=== PATIENT | male | born 1995 | race Hispanic/Latino ===

== ENCOUNTER 2020-12-05 02:01 | Inpatient (IN) | payer SELFPAY ==
[2020-12-04] MEDS: NYSTATIN 15 GM POWDER TP SCH (22:51)
[2020-12-05] VITALS (7 sets, daily range): BP systolic 112–136; BP diastolic 62–77
[~2020-12-05] VITALS: Ht 160 cm; Wt 76.3 kg
[2020-12-05] MEDS ORDERED: VANCOMYCIN 1G VIAL IVPB ONE (04:00)
[2020-12-05] MEDS ORDERED: 0.9% NACL 250ML IVPB ONE (04:00)
[2020-12-05] MEDS ORDERED: SULFAMETHOX-TMP DS 800/160 TAB PO SCH (04:00)
[2020-12-05 04:07] LABS: BASOPHILS % (AUTO) 0.3 % (0.0-5.0); EOSINOPHILS % (AUTO) 0.5 % (0.0-8.0); LYMPHOCYTES % (AUTO) 16.2 % (21.0-51.0); MEAN CORPUSCULAR HEMOGLOBIN 28.7 pg (27.0-33.0); MEAN CORPUSCULAR HGB CONC 33.8 g/dL (32.0-36.0); MEAN CORPUSCULAR VOLUME 85.1 fL (79-99); MONOCYTES % (AUTO) 10.5 % (3.0-13.0); NEUTROPHILS % (AUTO) 72.2 % (40.0-77.0); PLATELET COUNT (AUTO) 274 K/uL (130-400); RED CELL DISTRIBUTION WIDTH 12.2 % (11.0-15.5); WHITE BLOOD COUNT (AUTO) 11.6 K/uL (4.8-10.8)
[2020-12-05] MEDS ORDERED: VANCOMYCIN KIT 250 ML IV ONE (04:18)
[2020-12-05 04:21] LABS: CREATININE 0.9 mg/dL (0.5-1.5); POTASSIUM 3.7 mmol/L (3.5-5.1)
[2020-12-05] MEDS ORDERED: IOHEXOL-350 75 ML VIAL IV ONE (04:47)
[2020-12-05] MEDS ORDERED: BUPIVACAINE/PF 0.5% 30ML VIAL ONE (06:32)
[2020-12-05] MEDS ORDERED: ONDANSETRON 4MG INJ IV PRN (08:00)
[2020-12-05] MEDS ORDERED: ACETAMINOPHEN 325 MG TAB PO PRN ×2 (08:00)
[2020-12-05] MEDS ORDERED: LACTULOSE 20 GM/30 ML UDCUP PO PRN (08:00)
[2020-12-05] MEDS ORDERED: KETOROLAC 15MG/ML VIAL (15MG/ML) IV PRN (08:30)
[2020-12-05 09:52] LABS: HEMOGLOBIN A1C 6.1 % (4.0-6.0)
[2020-12-05] MEDS: NYSTATIN 15 GM POWDER TP SCH (10:46)
[2020-12-05] MEDS: 0.9%NACL 1000ML 1,000 ML IV SCH ×2 (10:46→18:00)
[2020-12-05] MEDS: FAMOTIDINE 20MG VIAL IV SCH ×2 (10:46→22:51)
[2020-12-05] MEDS ORDERED: ZOSYN 3.375GM+NS 50ML 50 ML IV SCH (13:00)
[2020-12-05] MEDS: ZOSYN 3.375GM+NS 50ML 50 ML IV SCH (18:27)
[2020-12-06] VITALS: BP 108/60
[2020-12-06] MEDS: ZOSYN 3.375GM+NS 50ML 50 ML IV SCH ×3 (02:58→18:56)
[2020-12-06 04:00] VITALS: BP 111/65
[2020-12-06] MEDS: 0.9%NACL 1000ML 1,000 ML IV SCH (04:00)
[2020-12-06 05:47] LABS: BASOPHILS % (AUTO) 0.3 % (0.0-5.0); EOSINOPHILS % (AUTO) 2.5 % (0.0-8.0); HEMATOCRIT 39.4 % (42-54); LYMPHOCYTES % (AUTO) 26.2 % (21.0-51.0); MEAN CORPUSCULAR HEMOGLOBIN 29.1 pg (27.0-33.0); MEAN CORPUSCULAR HGB CONC 34.5 g/dL (32.0-36.0); MEAN CORPUSCULAR VOLUME 84.4 fL (79-99); MONOCYTES % (AUTO) 9.7 % (3.0-13.0); NEUTROPHILS % (AUTO) 61.2 % (40.0-77.0); PLATELET COUNT (AUTO) 279 K/uL (130-400); RED BLOOD CELL COUNT(AUTO) 4.67 MIL/uL (4.50-6.20); RED CELL DISTRIBUTION WIDTH 12.1 % (11.0-15.5); WHITE BLOOD COUNT (AUTO) 7.2 K/uL (4.8-10.8)
[2020-12-06 06:01] LABS: CREATININE 0.9 mg/dL (0.5-1.5)
[2020-12-06 07:30] VITALS: BP 110/56
[2020-12-06] MEDS: NYSTATIN 15 GM POWDER TP SCH ×2 (10:19→20:10)
[2020-12-06] MEDS: FAMOTIDINE 20MG VIAL IV SCH ×2 (10:21→20:10)
[2020-12-06 11:44] VITALS: BP 105/58
[2020-12-06 16:00] VITALS: BP 119/59
[2020-12-06] MEDS: CEFAZOLIN SODIUM 1 GM VIAL IVP SCH (18:56)
[2020-12-06 20:00] VITALS: BP 112/68
[2020-12-07] VITALS (7 sets, daily range): BP systolic 106–116; BP diastolic 55–63
[2020-12-07] MEDS: 0.9%NACL 1000ML 1,000 ML IV SCH ×2 (00:02→11:20)
[2020-12-07] MEDS: CEFAZOLIN SODIUM 1 GM VIAL IVP SCH ×3 (01:38→17:01)
[2020-12-07] MEDS: ZOSYN 3.375GM+NS 50ML 50 ML IV SCH ×3 (02:40→17:01)
[2020-12-07 05:43] LABS: BASOPHILS % (AUTO) 0.6 % (0.0-5.0); EOSINOPHILS % (AUTO) 2.4 % (0.0-8.0); HEMATOCRIT 40.9 % (42-54); LYMPHOCYTES % (AUTO) 35.6 % (21.0-51.0); MEAN CORPUSCULAR HEMOGLOBIN 29.4 pg (27.0-33.0); MEAN CORPUSCULAR HGB CONC 34.5 g/dL (32.0-36.0); MEAN CORPUSCULAR VOLUME 85.2 fL (79-99); MONOCYTES % (AUTO) 8.8 % (3.0-13.0); NEUTROPHILS % (AUTO) 52.4 % (40.0-77.0); PLATELET COUNT (AUTO) 310 K/uL (130-400); WHITE BLOOD COUNT (AUTO) 6.6 K/uL (4.8-10.8)
[2020-12-07 05:59] LABS: CRP QUANTITATIVE 12.8 mg/L (0.00-9.0); POTASSIUM 3.7 mmol/L (3.5-5.1)
[2020-12-07 06:52] LABS: ERYTHROCYTE SEDIMENTATION RATE 10 MM/HR (0-15)
[2020-12-07] MEDS: NYSTATIN 15 GM POWDER TP SCH ×2 (08:39→21:31)
[2020-12-07] MEDS: FAMOTIDINE 20MG VIAL IV SCH ×2 (08:39→21:29)
[2020-12-08] MEDS: CEFAZOLIN SODIUM 1 GM VIAL IVP SCH ×3 (00:45→17:23)
[2020-12-08] MEDS: ZOSYN 3.375GM+NS 50ML 50 ML IV SCH ×3 (01:04→17:24)
[2020-12-08 03:40] VITALS: BP 107/63
[2020-12-08 05:13] LABS: BASOPHILS % (AUTO) 0.5 % (0.0-5.0); EOSINOPHILS % (AUTO) 2.7 % (0.0-8.0); HEMATOCRIT 40.2 % (42-54); LYMPHOCYTES % (AUTO) 34.7 % (21.0-51.0); MEAN CORPUSCULAR HGB CONC 34.6 g/dL (32.0-36.0); MEAN CORPUSCULAR VOLUME 83.8 fL (79-99); MONOCYTES % (AUTO) 9.6 % (3.0-13.0); NEUTROPHILS % (AUTO) 52.3 % (40.0-77.0); PLATELET COUNT (AUTO) 319 K/uL (130-400); RED CELL DISTRIBUTION WIDTH 11.9 % (11.0-15.5); WHITE BLOOD COUNT (AUTO) 6.2 K/uL (4.8-10.8)
[2020-12-08 05:32] LABS: CREATININE 1.1 mg/dL (0.5-1.5)
[2020-12-08] MEDS: 0.9%NACL 1000ML 1,000 ML IV SCH ×3 (08:00→16:40)
[2020-12-08 08:12] VITALS: BP 124/71
[2020-12-08] MEDS: FAMOTIDINE 20MG VIAL IV SCH ×2 (08:30→20:58)
[2020-12-08] MEDS: NYSTATIN 15 GM POWDER TP SCH ×2 (08:36→21:00)
[2020-12-08 11:33] VITALS: BP 108/72
[2020-12-08 16:00] VITALS: BP 108/67
[2020-12-08 20:00] VITALS: BP 117/64
[2020-12-08 23:46] VITALS: BP 114/53
[2020-12-09] MEDS: CEFAZOLIN SODIUM 1 GM VIAL IVP SCH ×2 (00:20→08:13)
[2020-12-09] MEDS: ZOSYN 3.375GM+NS 50ML 50 ML IV SCH ×2 (01:26→08:13)
[2020-12-09 03:55] VITALS: BP 116/62
[2020-12-09 05:43] LABS: BASOPHILS % (AUTO) 0.3 % (0.0-5.0); EOSINOPHILS % (AUTO) 2.9 % (0.0-8.0); HEMATOCRIT 41.4 % (42-54); LYMPHOCYTES % (AUTO) 34.3 % (21.0-51.0); MEAN CORPUSCULAR HEMOGLOBIN 28.7 pg (27.0-33.0); MEAN CORPUSCULAR HGB CONC 34.1 g/dL (32.0-36.0); MEAN CORPUSCULAR VOLUME 84.3 fL (79-99); MONOCYTES % (AUTO) 8.4 % (3.0-13.0); PLATELET COUNT (AUTO) 316 K/uL (130-400); RED BLOOD CELL COUNT(AUTO) 4.91 MIL/uL (4.50-6.20); WHITE BLOOD COUNT (AUTO) 6.9 K/uL (4.8-10.8)
[2020-12-09 06:03] LABS: POTASSIUM 3.5 mmol/L (3.5-5.1)
[2020-12-09] MEDS: 0.9%NACL 1000ML 1,000 ML IV SCH ×2 (08:00→12:36)
[2020-12-09 08:10] VITALS: BP 118/62
[2020-12-09] MEDS: FAMOTIDINE 20MG VIAL IV SCH (08:12)
[2020-12-09] MEDS: NYSTATIN 15 GM POWDER TP SCH (08:13)
[2020-12-09 12:00] VITALS: BP 111/51
[2020-12-09] MEDS ORDERED: SULF1TAB42 PO (13:07)
== END 2020-12-09 15:50 | disposition home or self-care (01) | DRG 603 ==
LOC: EDH 02:01 → EDHIP 02:02 → OBSVTOIN 02:02 → 3AH 12:23
PROVIDERS: ADMIT Hospitalist; ATTEND Hospitalist
DX: L02.31 Cutaneous abscess of buttock (principal); K61.1 Rectal abscess; L02.214 Cutaneous abscess of groin; L03.317 Cellulitis of buttock; B35.6 Tinea cruris; D72.829 Elevated white blood cell count, unspecified; F17.210 Nicotine dependence, cigarettes, uncomplicated; R73.03 Prediabetes; R73.9 Hyperglycemia, unspecified
CPT/HCPCS: 36415; 74177; 80048; 83036; 83605; 84145; 85025; 85651; 86140; 87070; 87077; 87186; G0378; J0690; J2543; J3370; J3490; J7030; Q9967

== ENCOUNTER 2021-03-28 21:58 | Emergency (ER) | payer SELFPAY ==
[~2021-03-28] VITALS: Ht 170.2 cm; Wt 77.1 kg
[~2021-03-28 21:58] MED LIST: SULF1TAB42 PO
[2021-03-28 22:24] VITALS: BP 127/63
[2021-03-28] MEDS ORDERED: MUPI22O TP (22:28)
[2021-03-28] MEDS ORDERED: CEPH500B PO (22:28)
[2021-03-28] MEDS ORDERED: CEPHALEXIN 500 MG CAPSULE PO ONE (22:30)
== END 2021-03-28 22:57 | disposition home or self-care (01) ==
LOC: EDH 21:58
DX: L73.9 Follicular disorder, unspecified (principal); L02.215 Cutaneous abscess of perineum; R73.09 Other abnormal glucose; Z79.899 Other long term (current) drug therapy
CPT/HCPCS: 82948